=== PATIENT | male | born 1960 | race Caucasian/White ===

== ENCOUNTER 2017-05-11 10:16 | Emergency (ER) | payer SELFPAY ==
[~2017-05-11] VITALS: Ht 175.3 cm; Wt 65.0 kg
[2017-05-11] MEDS ORDERED: SODIUM CHLORIDE 0.9% 1,000 ML IV ONE (11:04)
[2017-05-11] MEDS ORDERED: MORPHINE SULFATE 4 MG/ML, 1ML ONE (11:25)
[2017-05-11] MEDS ORDERED: FAMOTIDINE 20 MG/2 ML ONE (11:25)
[2017-05-11] MEDS ORDERED: ONDANSETRON 2MG/ML, 2ML ONE ×2 (11:25→14:32)
[2017-05-11] MEDS ORDERED: MORPHINE SULFATE 4 MG/ML, 1ML IVPush PRN (11:30)
[2017-05-11] MEDS ORDERED: SODIUM CHLORIDE 0.9% 1,000ML IVBOLUS ONE (11:30)
[2017-05-11] MEDS ORDERED: FAMOTIDINE 20 MG/2 ML IVP ONE (11:30)
[2017-05-11] MEDS ORDERED: SODIUM CHLORIDE FLUSH 10ML SYR IVF ONE (11:30)
[2017-05-11] MEDS ORDERED: ONDANSETRON 2MG/ML, 2ML IVPush ONE ×2 (11:30→15:00)
[2017-05-11 11:51] LABS: BLOOD UREA NITROGEN 20 mg/dL (7-18)
[2017-05-11 11:55] LABS: ASPARTATE AMINO TRANSFERASE 14 U/L (15-37)
[2017-05-11] MEDS ORDERED: OMNIPAQUE 350 MG/ML, 100ML BOTTLE ONE (13:53)
[2017-05-11] MEDS ORDERED: PROMETHAZINE 25 MG/ML, 1ML ONE (15:30)
[2017-05-11] MEDS ORDERED: PROMETHAZINE 25 MG/ML, 1ML IM ONE (15:30)
[2017-05-11 16:33] VITALS: BP 115/87
== END 2017-05-11 16:46 | disposition home or self-care (01) ==
LOC: ED 12:02
DX: R10.84 Generalized abdominal pain (principal); E86.0 Dehydration; R11.2 Nausea with vomiting, unspecified; F17.200 Nicotine dependence, unspecified, uncomplicated
CPT/HCPCS: 36415; 74020; 74177; 80053; 81001; 83690; 85025; 93005; 96361; 96372; 96374; 96375; 96376; 99285; J2405; J2550; J7030; Q9967; S0028